=== PATIENT | female | born 2005 | race Hispanic/Latino ===

== ENCOUNTER 2024-07-16 18:40 | Inpatient (IN) | payer BC, SELFPAY ==
[~2024-07-16 18:40] MED LIST: Iopamidol-370 76% 500 ML MDV (1 ML CHARGE) ONE
[2024-07-16] MEDS ORDERED: Adenosine 6 mg (2 mL) VIAL ONE (18:49)
[2024-07-16 19:27] LABS: #Basophils 0.05 10x3/uL (0.0-0.2); %Basophils 0.5 % (0.0-1.0); %Eosinophils 0.9 % (0.0-10.0); %Lymphocytes 17.9 % (28.0-48.0); %Monocytes 4.9 % (0.0-4.0); %Neutrophils 75.2 % (31.0-61.0); Hematocrit 40.5 % (36.0-47.0); Hemoglobin 13.7 g/dL (12.0-16.0); Mean Corpuscular HGB CONC 33.8 g/dL (32.0-36.0); Mean Corpuscular Hemoglobin 29.2 pg (25.0-35.0); Mean Corpuscular Volume 86.4 fL (78.0-98.0); Mean Platelet Volume 11.2 fL (7.4-10.4); Platelet Count 246 10x3/uL (130-400); RBC Distribution Width 12.6 % (11.5-14.5); Red Blood Cell (RBC) Count 4.69 mill/uL (4.00-5.20)
[2024-07-16 19:35] LABS: BHCG - Serum Negative (NEGATIVE); Pregs Control Background? CLEAR/WHITE (CLR/WHITE); Pregs Control Bar Appear? YES (CONTROL BAR)
[2024-07-16 19:46] LABS: ALT (SGPT) 9 U/L (Less than 34); AST (SGOT) 34 U/L (11-34); Albumin 4.1 g/dL (3.1-4.5); Alkaline Phosphatase 41 U/L (40-100); Anion Gap 15 mmol/L (10-20); BUN (Urea Nitrogen) 8 mg/dL (7.0-18.7); Bilirubin, Total 0.9 mg/dL (0.3-1.2); Calc. Creatinine Clearance 0 mL/min (70-130); Calcium 8.8 mg/dL (7.8-10.44); Carbon Dioxide 21 mmol/L (22-29); Chloride 105 mmol/L (98-107); Estimated GFR 102; Globulin 3.9 g/dL (2.4-3.5); Glucose 122 mg/dL (70-105); Potassium 3.5 mmol/L (3.5-5.1); Sodium 137 mmol/L (136-145)
[2024-07-16 19:47] LABS: Magnesium 1.6 mg/dL (1.7-2.2)
[2024-07-16 19:48] LABS: Acetaminophen Less than 10 mcg/mL (Less than 10); Alcohol Less than 10.0 mg/dL (Less than 10); Salicylate Less than 8.0 mg/dL (Less than 8.0)
[2024-07-16 19:50] LABS: Troponin I 0.056 ng/mL (< 0.028)
[2024-07-16 20:02] LABS: Amphetamine Not Detected (NotDetected); Barbiturates Screen Not Detected (NotDetected); Benzodiazepine Screen Not Detected (NotDetected); Cocaine Metabolite Screen Not Detected (NotDetected); Methadone Not Detected (NotDetected); Methamphetamine Not Detected (NotDetected); Opiate Screen Not Detected (NotDetected); Oxycodone Screen Not Detected (NotDetected); Phencyclidine (PCP) Not Detected (NotDetected); THC/Cannabinoid Screen Not Detected (NotDetected); Tricyclic Screen Not Detected (NotDetected)
[2024-07-16] MEDS ORDERED: Aspirin Chewable 81 MG TAB ONE (20:36)
[2024-07-16] MEDS ORDERED: Magnesium 2 GM/50 ML BAG (IN WATER) ONE (20:37)
[2024-07-16 22:24] LABS: Lactic Acid 1.43 mmol/L (0.50-2.20)
[2024-07-16] MEDS ORDERED: Acetaminophen 650 MG Suppository PR PRN (22:36)
[2024-07-16] MEDS ORDERED: Ondansetron ODT 4 MG TAB PO PRN (22:36)
[2024-07-16] MEDS ORDERED: Ondansetron PF 4 MG/2 ML Vial IVP PRN (22:36)
[2024-07-16] MEDS ORDERED: Calcium Carbonate 500 MG ChewTAB PO PRN (22:36)
[2024-07-16] MEDS ORDERED: Acetaminophen 325 MG TAB PO PRN (22:36)
[2024-07-17 01:50] LABS: Troponin I 0.353 ng/mL (< 0.028)
[2024-07-17 05:44] LABS: ALT (SGPT) 9 U/L (Less than 34); AST (SGOT) 25 U/L (11-34); Alkaline Phosphatase 31 U/L (40-100); Anion Gap 9 mmol/L (10-20); BUN (Urea Nitrogen) 7 mg/dL (7.0-18.7); Bilirubin, Total 0.5 mg/dL (0.3-1.2); Calc. Creatinine Clearance 0 mL/min (70-130); Calcium 8.3 mg/dL (7.8-10.44); Carbon Dioxide 22 mmol/L (22-29); Chloride 109 mmol/L (98-107); Estimated GFR 129; Glucose 103 mg/dL (70-105); Potassium 3.4 mmol/L (3.5-5.1); Protein, Total 6.3 g/dL (6.0-8.3); Sodium 137 mmol/L (136-145)
[2024-07-17] MEDS ORDERED: Potassium Chloride 20 MEQ TAB PO SCH (07:29)
[2024-07-17] MEDS ORDERED: Electrolyte Replacement Protocol 1 EACH FS SCH (07:30)
[2024-07-17] MEDS ORDERED: Promethazine HCl 25 MG in Sodium Chloride 0.9% 50 ML IVPB PRN (07:44)
[2024-07-17] MEDS ORDERED: Electrolyte Replacement Protocol FS PRN (07:45)
[2024-07-17] MEDS ORDERED: Potassium Bicarbonate/Cit Ac 20 MEQ TAB ONE (08:02)
[2024-07-17] MEDS: Potassium Bicarbonate/Cit Ac 20 MEQ TAB PO SCH (08:08)
[2024-07-17 08:40] LABS: Albumin 3.3 g/dL (3.1-4.5)
[2024-07-17 09:25] LABS: Magnesium 2.3 mg/dL (1.7-2.2)
[2024-07-17] MEDS ORDERED: Magnesium 2 GM/50 ML BAG (IN WATER) ONE (11:27)
[2024-07-17] MEDS: Magnesium 2 GM/50 ML(in water) 2 GM in Premix 1 BAG IVPB SCH (11:34)
[2024-07-17 15:36] LABS: Magnesium 2.3 mg/dL (1.7-2.2); Potassium 3.9 mmol/L (3.5-5.1)
[2024-07-17 15:37] LABS: Cardiac Risk 2.8 (Less than 4.5)
[2024-07-17 16:17] VITALS: BMI 20.7
[2024-07-18 06:53] LABS: #Basophils 0.08 10x3/uL (0.0-0.2); %Eosinophils 4.4 % (0.0-10.0); %Lymphocytes 39.3 % (28.0-48.0); %Monocytes 6.6 % (0.0-4.0); %Neutrophils 48.6 % (31.0-61.0); Hematocrit 34.6 % (36.0-47.0); Hemoglobin 11.2 g/dL (12.0-16.0); Mean Corpuscular HGB CONC 32.4 g/dL (32.0-36.0); Mean Corpuscular Hemoglobin 29.4 pg (25.0-35.0); Mean Corpuscular Volume 90.8 fL (78.0-98.0); Mean Platelet Volume 11.6 fL (7.4-10.4); Platelet Count 213 10x3/uL (130-400); RBC Distribution Width 12.8 % (11.5-14.5); Red Blood Cell (RBC) Count 3.81 mill/uL (4.00-5.20)
[2024-07-18 07:11] LABS: ALT (SGPT) 7 U/L (Less than 34); AST (SGOT) 17 U/L (11-34); Albumin 3.2 g/dL (3.1-4.5); Alkaline Phosphatase 30 U/L (40-100); Anion Gap 10 mmol/L (10-20); BUN (Urea Nitrogen) 8 mg/dL (7.0-18.7); Bilirubin, Direct 0.2 mg/dL (0.1-0.3); Bilirubin, Total 0.5 mg/dL (0.3-1.2); Calc. Creatinine Clearance 103 mL/min (70-130); Calcium 8.3 mg/dL (7.8-10.44); Carbon Dioxide 21 mmol/L (22-29); Chloride 110 mmol/L (98-107); Estimated GFR 129; Glucose 80 mg/dL (70-105); Magnesium 1.8 mg/dL (1.7-2.2); Potassium 3.8 mmol/L (3.5-5.1); Protein, Total 6.2 g/dL (6.0-8.3); Sodium 137 mmol/L (136-145)
[2024-07-18] MEDS: Metoprolol Succinate XL 25 MG ER.TAB PO SCH (08:36)
[2024-07-18] MEDS: Magnesium 2 GM/50 ML(in water) 2 GM in Premix 1 BAG IVPB SCH (08:37)
[2024-07-18 08:39] VITALS: TEMP 97.9
[2024-07-18 12:06] VITALS: BP 124/82
== END 2024-07-18 16:45 | disposition home or self-care (01) | DRG 282 ==
LOC: ERS 18:40 → ERHOLD 20:57 → OBS 21:56 → OBSVTOIN 07-17 16:15
PROVIDERS: ADMIT Student in an Organized Health Care Education/Training Program; ATTEND Hospitalist
DX: I47.10 Supraventricular tachycardia, unspecified (principal); I21.A1 Myocardial infarction type 2; E87.6 Hypokalemia; E83.42 Hypomagnesemia; Z88.0 Allergy status to penicillin; Z88.8 Allergy status to other drugs, medicaments and biological substances
CPT/HCPCS: 36415; 36416; 71275; 80048; 80053; 80061; 80076; 80306; 80307; 83036; 83605; 83735; 83880; 84443; 84484; 84703; 85025; 85379; 93005; 93306; 96365; 96366; 96375; J0153; J3475; Q9967